=== PATIENT | female | born 1970 | race Caucasian/White ===

== ENCOUNTER 2017-12-13 12:17 | Outpatient (CLI) | payer BC | END 2017-12-13 12:18 | disposition home or self-care (01) | LOC: BICMAMMO 12:17 | PROVIDERS: ATTEND Obstetrics & Gynecology | DX: Z12.31 Encounter for screening mammogram for malignant neoplasm of breast (principal) | CPT/HCPCS: 77063; 77067 ==

== ENCOUNTER 2019-05-07 08:44 | Outpatient (CLI) | payer BC ==
--- NOTE | 2019-05-07 09:14 | ULT ---
US Renal Bilateral STANDARD: 05/07/2019 12:00 AM CLINICAL HISTORY: Chronic kidney disease. STUDY: Renal ultrasound COMPARISON: None. FINDINGS: Right kidney: Echogenicity: Normal. Masses/cysts: None. Hydronephrosis: None. Calcifications: None. Length: 10.1 cm Left kidney: Echogenicity: Normal. Masses/cysts: None. Hydronephrosis: None. Calcifications: 4 mm nonobstructing calcification Length: 10.8 cm Limited visualization of the urinary bladder is unremarkable. IMPRESSION: Nonobstructing left renal calcification
== END 2019-05-07 08:45 | disposition home or self-care (01) ==
LOC: SCSULT 08:44
PROVIDERS: ATTEND Urology
DX: N20.0 Calculus of kidney (principal); N28.89 Other specified disorders of kidney and ureter
CPT/HCPCS: 76770